=== PATIENT | female | born 1990 | race Caucasian/White ===

== ENCOUNTER 2021-01-22 11:05 | Emergency (ER) | payer SELFPAY ==
[~2021-01-22] VITALS: Ht 157 cm; Wt 65.0 kg
[2021-01-22] MEDS ORDERED: KETOROLAC 30 MG/ML VIAL IVP STA (11:19)
[2021-01-22] MEDS ORDERED: NS IV 1000 ML 1,000 ML IV STA (11:19)
[2021-01-22] MEDS ORDERED: ONDANSETRON 4 MG/2 ML (SDV) Z0FRAN IVP STA (11:19)
--- NOTE | 2021-01-22 11:45 | ED General ---
General Chief Complaint: Dizziness/Syncope Stated Complaint: SYNCOPAL EPISODE Nursing Triage Note: PT WAS SITTING AT HER [facility]RIENDS APPT AND STARTED FEELING LIKE SHE WAS GOING TO PASS OUT SO SHE LAID DOWN ON THE FLOOR. SHE REPORTS SHE NEVER PASSED OUT BUT FELT DIZZY, SHAKY, WEAK, AND A HEADACHE. SHE ALSO REPORTS SHE MIGHT BE DEHYDRATED BC THEY WENT FISHING LAST PM IN THE HEAT. REPORTS HER URINE IS DARKER DAMON NORMAL. HX OF STONES WELL. Source of Information: Patient, Other (significant other) History of Present Illness Date Seen by Provider: Jan 22, 2021 Time Seen by Provider: 11:07 Initial Comments 30-year-old female presenting with complaints of feeling dehydrated and weak. She states that she had gone fishing last night in the heat and did not drink enough fluids to replace what she decided out. She also woke up having pain in the middle of her back similar to when she has had kidney stones in the past. She reports her urine has been dark-colored and smells bad this morning. In the past that has also been a sign of kidney stones and/or infection. She was feeling dizzy, shaky, weak and had a headache. She became sweaty and felt like her vision was getting dark in the clinic while she was sitting with her significant other during his appointment. She stated that she had a sling out of the seat and lay on the floor because she felt that she would pass out if she did not do that. She again states she has felt this way in the past when she has had kidney stones and infection with them. She also admits to using methamphetamines by smoking them but denies IV drug use. She started her normal menstrual period this am as well according to the patient. She reports this is a normal time for her to have a period. Associated Systoms: No Chest Pain, No Cough; Diaphoresis; No Fever/Chills; Headaches; No Loss of Appetite; Malaise, Nausea/Vomiting (nausea when she felt like she might pass out but no vomiting); No Seizure, No Shortness of Air, No Syncope; Weakness Allergies and Home Medications Allergies Coded Allergies: No Known Drug Allergies (Unverified , 01/22/21) Home Medications Cephalexin 500 Mg Capsule, 500 MG PO QID Prescribed by: BEATRIZ BOYCE on 01/22/21 1312 Naproxen 500 Mg Tablet, 500 MG PO Q12H Prescribed by: BEATRIZ BOYCE on 01/22/21 1312 Patient Home Medication List Home Medication List Reviewed: Yes Review of Systems Review of Systems Constitutional: see HPI, diaphoresis EENTM: no symptoms reported Respiratory: no symptoms reported Cardiovascular: no symptoms reported Gastrointestinal: see HPI Genitourinary: see HPI, decreased output, dysuria : No LMP: Jan 22, 2021 Musculoskeletal: back pain (middle of back and right flank) Skin: see HPI (reportedly became very pale and diaphoretic when she felt like she might pass out.) Psychiatric/Neurological: Headache Past [id number]-Xssppg Hx Patient Social History Tobacco Use?: Yes Tobacco type used: Cigarettes Smoking Status: Current Everyday Smoker Use of E-Cig and/or Vaping dev: No Substance use?: Yes Substance type: Methamphetamine Alcohol Use?: No Pt feels they are or have been: No Past Medical History Respiratory: No Cardiac: No Neurological: No [employer] History: Tubal Ligation Genitourinary: Yes Kidney Stones Gastrointestinal: No Musculoskeletal: No Endocrine: No Physical Exam Vital Signs Vital Signs - First Documented 01/22/21 11:05 Temp 36.1 Pulse 85 Resp 16 B/P (MAP) 99/55 (70) Pulse Ox 100 O2 Delivery Room Air Capillary Refill : Less Than 3 Seconds Height, Weight, BMI Height: '" Weight: lbs. oz. kg; 26.00 BMI Method: General Appearance: Thin HEENT: PERRL/EOMI, Other (poor dentition and missing several teeth ) Neck: Full Range of Motion, Normal Inspection, Non Tender, Supple Respiratory: Chest Non Tender, Lungs Clear, Normal Breath Sounds Cardiovascular: Regular Rate, Rhythm, No Murmur, Normal Peripheral Pulses Gastrointestinal: Normal Bowel Sounds, No Pulsatile Mass, Non Tender, Soft Rectal: Deferred Back: CVA Tenderness (R) (with right flank pain) Extremity: Normal Capillary Refill, Normal Inspection, No Pedal Edema Neurologic/Psychiatric: Alert, Oriented x3, luggage attendant II-XII Norm as Tested Skin: Normal Color, Warm/Dry Progress/Results/Core Measures Suspected Sepsis SIRS Temperature: Pulse: 85 Respiratory Rate: 16 Laboratory Tests 01/22/21 11:21: White Blood Count 11.5H Blood Pressure 99 /55 Mean: 70 Laboratory Tests 01/22/21 11:21: Creatinine 1.00, Platelet Count 330, Total Bilirubin 0.4 Results/Orders Lab Results Laboratory Tests Test 01/22/21 11:08 01/22/21 11:21 Range/Units Urine Color DARK YELLOW Urine Clarity CLOUDY H Urine pH 6.0 5-9 Urine Specific [place] 1.015 L 1.016-1.022 Urine Protein TRACE H NEGATIVE Urine Glucose (UA) NEGATIVE NEGATIVE Urine Ketones TRACE H NEGATIVE Urine Nitrite POSITIVE H NEGATIVE Urine Bilirubin NEGATIVE NEGATIVE Urine Urobilinogen 0.2 < = 1.0 MG/DL Urine Leukocyte Esterase 3+ H NEGATIVE Urine RBC (Auto) 2+ H NEGATIVE Urine RBC 10-25 H /HPF Urine WBC >100 H /HPF Urine Squamous Epithelial Cells 5-10 /HPF Urine Crystals NONE /LPF Urine Bacteria LARGE H /HPF Urine Casts NONE /LPF Urine Mucus MODERATE H /LPF Urine Culture Indicated YES Urine Opiates Screen NEGATIVE NEGATIVE Urine Oxycodone Screen NEGATIVE NEGATIVE Urine Methadone Screen NEGATIVE NEGATIVE Urine Propoxyphene Screen NEGATIVE NEGATIVE Urine Barbiturates Screen NEGATIVE NEGATIVE Ur Tricyclic Antidepressants Screen NEGATIVE NEGATIVE Urine Phencyclidine Screen NEGATIVE NEGATIVE Urine Amphetamines Screen POSITIVE H NEGATIVE Urine Methamphetamines Screen POSITIVE H NEGATIVE Urine Benzodiazepines Screen NEGATIVE NEGATIVE Urine Cocaine Screen NEGATIVE NEGATIVE Urine Cannabinoids Screen NEGATIVE NEGATIVE White Blood Count 11.5 H 4.3-11.0 10^3/uL Red Blood Count 4.54 4.35-5.85 10^6/uL Hemoglobin 12.6 11.5-16.0 G/DL Hematocrit 39 35-52 % Mean Corpuscular Volume 86 80-99 FL Mean Corpuscular Hemoglobin 28 25-34 PG Mean Corpuscular Hemoglobin Concent 33 32-36 G/DL Red Cell Distribution Width 16.4 H 10.0-14.5 % Platelet Count 330 130-400 10^3/uL Mean Platelet Volume 10.3 7.4-10.4 FL Immature Granulocyte % (Auto) 0 % Neutrophils (%) (Auto) 95 H 42-75 % Lymphocytes (%) (Auto) 5 L 12-44 % Monocytes (%) (Auto) 0 0-12 % Eosinophils (%) (Auto) 0 0-10 % Basophils (%) (Auto) 0 0-10 % Neutrophils # (Auto) 10.9 H 1.8-7.8 X 10^3 Lymphocytes # (Auto) 0.5 L 1.0-4.0 X 10^3 Monocytes # (Auto) 0.0 0.0-1.0 X 10^3 Eosinophils # (Auto) 0.0 0.0-0.3 10^3/uL Basophils # (Auto) 0.0 0.0-0.1 10^3/uL Immature Granulocyte # (Auto) 0.0 0.0-0.1 10^3/uL Neutrophils % (Manual) 54 % Lymphocytes % (Manual) 6 % Monocytes % (Manual) 1 % Eosinophils % (Manual) 1 % Basophils % (Manual) 0 % Myelocytes % 1 % Band Neutrophils 37 % Sodium Level 137 135-145 MMOL/L Potassium Level 3.5 L 3.6-5.0 MMOL/L Chloride Level 102 98-107 MMOL/L Carbon Dioxide Level 24 21-32 MMOL/L Anion Gap 11 5-14 MMOL/L Blood Urea Nitrogen 21 H 7-18 MG/DL Creatinine 1.00 0.60-1.30 MG/DL Estimat Glomerular Filtration Rate 64 BUN/Creatinine Ratio 21 Glucose Level 99 70-105 MG/DL Calcium Level 9.6 8.5-10.1 MG/DL Corrected Calcium 9.3 8.5-10.1 MG/DL Total Bilirubin 0.4 0.1-1.0 MG/DL Aspartate Amino Transf (AST/SGOT) 16 5-34 U/L Alanine Aminotransferase (ALT/SGPT) 11 0-55 U/L Alkaline Phosphatase 89 40-136 U/L Total Protein 7.2 6.4-8.2 GM/DL Albumin 4.4 3.2-4.5 GM/DL Lipase 35 8-78 U/L Serum Test, Qualitative NEGATIVE NEGATIVE My Orders Orders - BEATRIZ BOYCE MD Ua Culture If Indicated (01/22/21 11:09) Drug Screen Stat (Urine) (01/22/21 11:09) Comprehensive Metabolic Panel (01/22/21 11:19) Lipase (01/22/21 11:19) Ed Iv/Invasive Line Start (01/22/21 11:19) Cbc With Automated Diff (01/22/21 11:19) Ns Iv 1000 Ml (Sodium Chloride 0.9%) (01/22/21 11:19) Ondansetron Injection (Zofran Injectio (01/22/21 11:19) Ketorolac Injection (Toradol Injection) (01/22/21 11:19) Hcg,Qualitative Serum (01/22/21 11:19) Ct Abd/Pelvis Wo(Kidney Stone) (01/22/21 11:29) Manual Differential (01/22/21 11:21) Urine Culture (01/22/21 11:08) Ceftriaxone (Rocephin) (01/22/21 12:51) Vital Signs/I&O 01/22/21 01/22/21 11:05 13:06 Temp 36.1 36.2 Pulse 85 86 Resp 16 20 B/P (MAP) 99/55 (70) 132/72 Pulse Ox 100 99 O2 Delivery Room Air Room Air Capillary Refill : Less Than 3 Seconds Blood Pressure Mean: 70 Progress Note #1: Progress Note Check labs, urine, drug screen, serum HCG, CT abd/pelvis without contrast to evaluate for kidney stone. Give IVF for hydration, toradol for pain, zofran for nausea. Progress Note #2: Progress Note Labs show white blood cell count at upper limit of normal at 11.5 thousand. She does have a bandemia present with on her differential. This certainly could be related back to her methamphetamine abuse and dehydration as well. She does have a urinary tract infection and signs of kidney stones. Her CT shows a large staghorn stone in the left kidney. There are smaller stones in the right kidney. There is no obstructing stone on the right side to account for her right flank pain. Her chemistry panel is normal with a creatinine of 1.0. Her urine drug screen does show methamphetamines. Patient reports she is feeling better after fluids and treatment here in the ED. She has anxious to be dischar ged and asking to go eat so she can get to eat a hamburger. Will treat with IV Rocephin here and discharged on cephalexin and naproxen. Counseled on follow-up and return precautions. Advised about treatment for kidney stones. Given information about Dr. Yanes and the [facility] clinic Diagnostic Imaging Diagonstic Imaging: CT Plain Films/CT/US/NM/MRI: abdomen, pelvis Comments Impression by Dr. Rei Burden. Left staghorn calculus. This appears to be causing hydronephrosis of the left kidney. There are calculi in the lower pole of the right kidney but no evidence of obstruction. There is fecal stasis. This was dictated 12:15 p.m. and transcribed at 12:19 PM Reviewed: Reviewed by Me Departure Impression Primary Impression: Near syncope Additional Impressions: Acute right flank pain Cystitis with hematuria Kidney stones Dehydration Methamphetamine abuse Disposition: 01 HOME, SELF-CARE Condition: Improved Departure-Patient Inst. Decision time for Depature: 13:07 Referrals: NO,LOCAL PHYSICIAN (PCP) Primary Care Physician YURI YANES [place] [facility] [place]ructions: Flank Pain ED, Kidney Stone, Adult ED, Dehydration, Adult ED, Kidney Stone Diet, Near Fainting (DC), Urinary Tract Infection, Adult ED Add. Discharge Instructions: Take the full course of antibiotics to treat for urine infection. Drink more water and less soda pop and carbonated drinks. Follow up with [facility] clinic for continued concerns and see Urology about the large kidney stone on the left as it will likely require surgery or a procedure to remove it. [facility] clinic may be called at [phone] to see about establishing care with a primary care provider. Dr. Yanes is a Urologist in [place] that you could check with about the kidney stone as well. All discharge instructions reviewed with patient and/or family. Voiced understanding. Scripts Naproxen (Naproxen) 500 Mg Tablet 500 MG PO Q12H for Renal Colic for 10 Days, #20 TAB 0 Refills Prov: BEATRIZ BOYCE MD 01/22/21 Cephalexin (Cephalexin) 500 Mg Capsule 500 MG PO QID for 10 Days, #40 CAP 0 Refills Prov: BEATRIZ BOYCE MD 01/22/21 BEATRIZ BOYCE MD Jan 22, 2021 11:45
[2021-01-22 11:53] LABS: ALBUMIN 4.4 GM/DL (3.2-4.5); BILIRUBIN,TOTAL 0.4 MG/DL (0.1-1.0); CALCIUM 9.6 MG/DL (8.5-10.1); POTASSIUM 3.5 MMOL/L (3.6-5.0); TOTAL PROTEIN 7.2 GM/DL (6.4-8.2)
[2021-01-22 11:54] LABS: WHITE BLOOD COUNT 11.5 10^3/uL (4.3-11.0)
[2021-01-22 11:55] LABS: BASOPHILS % (AUTO) 0 % (0-10); EOSINOPHILS % (AUTO) 0 % (0-10); HEMATOCRIT 39 % (35-52); HEMOGLOBIN 12.6 G/DL (11.5-16.0); LYMPHOCYTES # (AUTO) 0.5 X 10^3 (1.0-4.0); LYMPHOCYTES % (AUTO) 5 % (12-44); MEAN CORPUSCULAR HEMOGLOBIN 28 PG (25-34); MEAN CORPUSCULAR HGB CONC 33 G/DL (32-36); MEAN CORPUSCULAR VOLUME 86 FL (80-99); MEAN PLATELET VOLUME 10.3 FL (7.4-10.4); MONOCYTES % (AUTO) 0 % (0-12); NEUTROPHILS # (AUTO) 10.9 X 10^3 (1.8-7.8); NEUTROPHILS % (AUTO) 95 % (42-75); PLATELET COUNT 330 10^3/uL (130-400)
[2021-01-22 11:56] LABS: BAND NEUTROPHILS 37 %; LYMPHOCYTES % (MANUAL) 6 %; NEUTROPHILS % (MANUAL) 54 %
[2021-01-22 11:57] LABS: BASOPHILS % (MANUAL) 0 %; EOSINOPHILS % (MANUAL) 1 %; MONOCYTES % (MANUAL) 1 %; MYELOCYTES % 1 %
[2021-01-22 12:32] LABS: BACTERIA,URINE LARGE /HPF; BILIRUBIN,URINE NEGATIVE (NEGATIVE); CLARITY,URINE CLOUDY; COLOR,URINE DARK YELLOW; GLUCOSE, URINE (UA) NEGATIVE (NEGATIVE); KETONES,URINE TRACE (NEGATIVE); LEUKOCYTE ESTERASE ,URINE 3+ (NEGATIVE); NITRITE,URINE POSITIVE (NEGATIVE); PROTEIN,URINE TRACE (NEGATIVE); WBC,URINE >100 /HPF
[2021-01-22 12:35] LABS: AMPHETAMINE SCREEN, URINE POSITIVE (NEGATIVE); BARBITURATE SCREEN URINE NEGATIVE (NEGATIVE); BENZODIAZEPINES SCREEN URINE NEGATIVE (NEGATIVE); CANNABINOID SCREEN, URINE NEGATIVE (NEGATIVE); COCAINE SCREEN URINE NEGATIVE (NEGATIVE); METHADONE STAT NEGATIVE (NEGATIVE); METHAMPHETAMINE SCREEN URINE S POSITIVE (NEGATIVE); OPIATE SCREEN URINE NEGATIVE (NEGATIVE); OXYCODONE STAT NEGATIVE (NEGATIVE); PROPOXYPHENE STAT NEGATIVE (NEGATIVE); TRICYCLIC ANTIDEPRESSANTS SCRE NEGATIVE (NEGATIVE)
[2021-01-22] MEDS ORDERED: cefTRIAXone 1,000 MG in WATER (STERILE) FOR INJECTION 10 ML IV STA (12:51)
[2021-01-22 13:06] VITALS: BP 132/72
[2021-01-22] MEDS ORDERED: CEPH500C PO (13:12)
[2021-01-22] MEDS ORDERED: NAPR-915 PO (13:12)
--- NOTE | 2021-01-22 14:21 | Diagnostic Imaging Report ---
PROCEDURE: CT urinary tract, rule out kidney stone. TECHNIQUE: Multiple contiguous axial images were obtained through the abdomen and pelvis without the use of intravenous contrast. Auto Exposure Controls were utilized during the CT exam to meet ALARA standards for radiation dose reduction. INDICATION: Right flank pain There are 2 calculi in lower pole right kidney each measuring 2 mm in diameter. There is no hydronephrosis. There is a staghorn calculus in the left kidney with hydronephrosis. Lung bases are clear. Liver appears normal. Gallbladder is present. Pancreas is normal. Spleen is not enlarged. There is a large amount of stool in the colon. Uterus is present. Urinary bladder is unremarkable. Adnexa unremarkable. There is no intraperitoneal free air or free fluid. IMPRESSION: Left staghorn calculus. This appears to be causing hydronephrosis of left kidney. There are calculi in the lower pole of the right kidney but no evidence of obstruction. Fecal stasis. Dictated by: Dictated on workstation # [id number]
== END 2021-01-22 13:14 | disposition home or self-care (01) ==
LOC: ER FS 11:07
DX: R55 Syncope and collapse (principal); N30.91 Cystitis, unspecified with hematuria; N13.2 Hydronephrosis with renal and ureteral calculous obstruction; E86.0 Dehydration; F15.10 Other stimulant abuse, uncomplicated; F17.210 Nicotine dependence, cigarettes, uncomplicated
CPT/HCPCS: 36415; 74176; 80053; 80306; 81000; 83690; 84703; 85007; 85027; 87088